=== PATIENT | female | born 1985 | race Caucasian/White ===

== ENCOUNTER → 2016-08-30 | Outpatient (CLI) | payer OTHER ==
[~2016-08-30] MED LIST: MOTRIN-DPS800 MG PO; NIPPLECREAM TP; PRENATAL VIT1 TAB PO; TYLENOL EXTRA500 M1 PO
== END | disposition home or self-care (01) ==
LOC: EDT 08:21
DX: O24.419 Gestational diabetes mellitus in pregnancy, unspecified control (principal)

== ENCOUNTER 2016-10-31 07:05 | Inpatient (IN) | payer OTHER ==
[~2016-10-31] VITALS: Ht 157.5 cm; Wt 91.2 kg
--- NOTE | ~2016-10-31 | FD ---
ADMIT: 10/31/2016 RM/LOC: 226 [facility] MR#: [id number] [address] CEE SM[address] [place] [address] Final Diagnosis SEX: F AGE: 31 : 1985 ADMISSION DATE: 10/31/2016 DISCHARGE DATE: 11/01/2016 FINAL DIAGNOSIS: 1. Intrauterine at 39-2/7 weeks estimated gestational age. 2. Gestational diabetes mellitus, on oral agents. PROCEDURE: Vaginal delivery. Lucas Simpson MD/ cindy JOB #: [id number] CC: Lucas Simpson MD, Attending Physician FAMILY PHYSICIAN, Family Physician
[2016-11-01] MEDS ORDERED: PRENATAL VIT1 TAB PO (20:47)
[2016-11-01] MEDS ORDERED: NIPPLECREAM TP (20:48)
[2016-11-01] MEDS ORDERED: MOTRIN-DPS800 MG PO (20:48)
[2016-11-01] MEDS ORDERED: TYLENOL EXTRA500 M1 PO (20:48)
--- NOTE | 2016-12-02 09:38 | OR ---
ADMIT: 10/31/2016 RM/LOC: 226 [facility] MR#: [id number] [address] CEE SMITH [address] [place] [address] Operative/Delivery Room Report SEX: F AGE: 31 : 1985 Corrected: 11/06/2016 1603 cindy SURGERY DATE: 10/31/2016 SURGEON: Lucas Simpson MD PRINCIPAL DIAGNOSES: 1. Term intrauterine . 2. Gestational diabetes, well controlled. POSTOPERATIVE DIAGNOSES: 1. Term intrauterine . 2. Gestational diabetes, well controlled. PROCEDURE: Spontaneous vaginal delivery. INTEGRATION SOFTWARE ENGINEER: Patricia Mckeon MD Resident INDICATION: The patient is a 31-year-old female, 2, para 1-0- 0-1, who presented at 39 and 2/7 weeks' estimated gestational age for induction of labor secondary to gestational diabetes. Underwent a Cytotec cervical ripening and subsequent labor with amniotomy to complete in a satisfactory fashion. FINDINGS: A viable male infant, 7 pounds 9 ounces with Apgars of 7 at one and 9 at five minutes, delivered in right occiput anterior presentation. PROCEDURE IN DETAIL: When the patient was noted to be complete and pushing, she was prepped and draped in the usual fashion in dorsal lithotomy position. 's head was allowed to deliver over an intact perineum. After restitution of the head, the neck was examined for nuchal cord and none was noted. The anterior followed by the posterior shoulders were delivered, followed by expulsion of the remainder of the infant. Mouth and nose were then cleared. Cord was clamped x2, cut, and the was placed on the maternal stomach after approximately 30 seconds of delayed cord clamped. The placenta ADMIT: 10/31/2016 RM/LOC: 226 [facility] MR#: [id number] [address] CEE SMITH [address] [place] [address] Operative/Delivery Room Report SEX: F AGE: 31 : 1985 was then delivered intact with normal appearance. The uterine cervix was then visualized and noted to be without lacerations or tears. Attention was then turned to the perineum, where she was noted to have a small second-degree midline laceration. This was instilled with approximately 12 mL of 1% lidocaine and then reapproximated in standard fashion utilizing this was repaired with a single length of 2-0 Vicryl utilizing a running locked stitch to close the vaginal mucosa, a running stitch to close the deep perineal body and subcuticular stitch to close the skin. The patient tolerated the procedure well and was taken to the recovery room in stable condition. All sponge, instrument, and needle counts were correct. Lucas Simpson MD/ gage JOB #: [id number] CC: Lucas Simpson, Attending Physician NO FAMILY PHYSICIAN, Family Physician Corrected: 11/06/2016 1603 cindy
== END 2016-11-01 19:45 | disposition home or self-care (01) | DRG 775 ==
LOC: BC 07:05 → 2LDRP 07:05 → BC 11-05 08:00
PROVIDERS: ADMIT Obstetrics & Gynecology
PROC: 0KQM0ZZ Repair Perineum Muscle, Open Approach (ICD-10-PCS; principal; 2016-10-31)
PROC: 10E0XZZ Delivery of Products of Conception, External Approach (ICD-10-PCS; principal; 2016-10-31)
PROC: 3E0P7GC Introduction of Other Therapeutic Substance into Female Reproductive, Via Natural or Artificial Opening (ICD-10-PCS; principal; 2016-10-31)
PROC: 10907ZC Drainage of Amniotic Fluid, Therapeutic from Products of Conception, Via Natural or Artificial Opening (ICD-10-PCS; principal; 2016-10-31)
DX: O24.425 Gestational diabetes mellitus in childbirth, controlled by oral hypoglycemic drugs (principal); O70.1 Second degree perineal laceration during delivery; Z3A.39 39 weeks gestation of pregnancy; Z37.0 Single live birth